=== PATIENT | male | born 1935 | race Caucasian/White ===

== ENCOUNTER 2017-10-04 10:07 | Inpatient (IN) | payer MEDICARE, OTHER ==
[~2017-10-04] VITALS: Ht 174 cm; Wt 74.8 kg
[~2017-10-04 10:07] MED LIST: AMLO2.5T PO; ASPI-496 PO; CA C1TAB35 PO; CALC0.25 PO; DOCU-180 PO; FERR-36 PO; FURO20TA3 PO; LOSA50TA6 PO; METO-95 PO; OMEP20TA62 PO; SPIR25TA3 PO; TRAM50TA2 PO; VALA500T4 PO; VITA1CAP PO
[2017-10-04] MEDS ORDERED: LACTATED RINGERS 1,000 ML IV SCH (10:37)
[2017-10-04 10:47] VITALS: BP 135/73
[2017-10-04] MEDS ORDERED: FENTANYL PF 250 MCG/5ML ONE (11:02)
[2017-10-04] MEDS ORDERED: BUPIVACAINE/PF 0.5% ONE (11:19)
[2017-10-04] MEDS ORDERED: EPINEPHRINE 1 MG/ML, 1ML ONE (11:19)
[2017-10-04] MEDS ORDERED: CEFOTETAN 2 GM ONE (11:51)
[2017-10-04] MEDS ORDERED: ROCURONIUM 10 MG/ML,10ML ONE (11:51)
[2017-10-04] MEDS ORDERED: PROPOFOL 10 MG/ML, 20ML ONE (12:13)
[2017-10-04] MEDS ORDERED: ONDANSETRON 2MG/ML, 2ML ONE (12:13)
[2017-10-04] MEDS ORDERED: DEXAMETHASONE 4 MG/ML, 1ML ONE (12:13)
[2017-10-04] MEDS ORDERED: SUCCINYLCHOLINE 20 MG/ML, 10ML ONE (12:13)
[2017-10-04] MEDS ORDERED: BUPIVACAINE/PF-EPI 0.5% 1:200K INFIL ONE (12:21)
[2017-10-04] MEDS ORDERED: GLYCOPYRROLATE 0.4 MG/2 ML, 2ML ONE (12:27)
[2017-10-04] MEDS ORDERED: NEOSTIGMINE 1 MG/ML, 10ML ONE (12:27)
[2017-10-04] MEDS ORDERED: morphine SULFATE 10 MG/ML, 1ML IV PRN (13:00)
[2017-10-04] MEDS ORDERED: HYDROcodone/APAP 7.5-325MG/15ML UDC PO PRN (13:00)
[2017-10-04] MEDS ORDERED: DIPHENHYDRAMINE 50 MG/ML, 1ML IV PRN (13:00)
[2017-10-04] MEDS ORDERED: LORazepam 2 MG/ML, 1ML IV PRN (13:00)
[2017-10-04] MEDS ORDERED: PROMETHAZINE 12.5 MG SUPP PR PRN (13:00)
[2017-10-04] MEDS ORDERED: hydrALAzine 20 MG/ML, 1ML IV PRN ×2 (13:00)
[2017-10-04] MEDS ORDERED: PROMETHAZINE 25 MG/ML, 1ML IM PRN (13:00)
[2017-10-04] MEDS ORDERED: PROMETHAZINE 25 MG/ML, 1ML IV PRN (13:00)
[2017-10-04] MEDS ORDERED: OXYcodone 5 MG/5 ML ORAL.SOL UDC PO PRN (13:00)
[2017-10-04] MEDS ORDERED: ONDANSETRON 2MG/ML, 2ML IVPush PRN ×2 (13:00)
[2017-10-04] MEDS ORDERED: ENALAPRILAT 1.25 MG/ML, 2ML IV PRN (13:00)
[2017-10-04] MEDS ORDERED: ACETAMINOPHEN 325 MG TABLET PO PRN (13:00)
[2017-10-04] MEDS ORDERED: OXYcodone 5 MG/5 ML ORAL.SOL UDC ONE (13:09)
[2017-10-04] MEDS ORDERED: ACETAMINOPHEN 650 MG/20.3 ML UDC ONE (13:09)
[2017-10-04] MEDS ORDERED: FENTANYL PF 100 MCG/2ML ONE (13:09)
[2017-10-04] MEDS: FENTANYL PF 100 MCG/2ML IV PRN ×4 (13:11→13:47)
[2017-10-04] MEDS ORDERED: LABETALOL 5MG/ML, 20ML ONE (13:25)
[2017-10-04] MEDS: LABETALOL 5MG/ML, 20ML IV PRN ×2 (13:28→13:47)
[2017-10-04] MEDS: morphine SULFATE 10 MG/ML, 1ML IV PRN ×2 (14:43→15:07)
[2017-10-04 15:16] VITALS: BP 133/76
[2017-10-04] MEDS ORDERED: PLEASE ENTER ALLERGIES MC SCH (15:30)
[2017-10-04 15:58] LABS: MEAN CORPUSCULAR HEMOGLOBIN 38.8 pg (27.5-34.5); MEAN CORPUSCULAR HGB CONC 33.4 g/dL (33.2-36.2); MEAN CORPUSCULAR VOLUME 116.1 fL (81-97); MEAN PLATELET VOLUME 6.2 fL (7.4-10.4); PLATELET COUNT 289 x10^3/uL (130-400); RED CELL DISTRIBUTION WIDTH 13.1 % (9.4-14.8)
[2017-10-04 16:09] LABS: ALANINE AMINOTRANSFERASE 41 U/L (12-78); ALBUMIN 3.6 g/dL (3.4-5.0); ANION GAP 8 mmol/L (5-15); CHLORIDE 104 mmol/L (98-107); CREATININE 2.11 mg/dL (0.7-1.3)
[2017-10-04 16:11] VITALS: BP 136/79
[2017-10-04 16:13] LABS: ALKALINE PHOSPHATASE 161 U/L (45-117); BILIRUBIN,TOTAL 0.5 mg/dL (0.2-1.0); TOTAL PROTEIN 7.5 g/dL (6.4-8.2); TROPONIN I < 0.015 ng/mL (0.000-0.045)
[2017-10-04] MEDS: FAMOTIDINE 20 MG/2 ML IV SCH (16:13)
[2017-10-04] MEDS: LACTATED RINGERS 1,000 ML IV SCH (16:17)
[2017-10-04 16:19] LABS: BASOPHILS % (AUTO) 0 % (0-1); EOSINOPHILS % (AUTO) 0 % (1-7); LYMPHOCYTES # (AUTO) 0.24 x10^3/uL (1-3.4); LYMPHOCYTES % (AUTO) 2 % (22-44); MD SCAN; MONOCYTES # (AUTO) 0.22 x10^3/uL (0.2-0.8); MONOCYTES % (AUTO) 2 % (2-9); NEUTROPHILS % (AUTO) 96 % (42-75)
[2017-10-04] MEDS: METOPROLOL TARTRATE 25 MG TABLET PO SCH ×2 (17:58→18:04)
[2017-10-04 19:28] VITALS: BP 106/60
[2017-10-04] MEDS: LOSARTAN 50MG TABLET PO SCH (20:53)
[2017-10-04 22:13] LABS: TROPONIN I < 0.015 ng/mL (0.000-0.045)
[2017-10-05 01:37] VITALS: BP 154/72
[2017-10-05] MEDS: LACTATED RINGERS 1,000 ML IV SCH (01:43)
[2017-10-05 06:23] VITALS: BP 175/87
[2017-10-05] MEDS: METOPROLOL TARTRATE 25 MG TABLET PO SCH ×2 (06:23→16:37)
[2017-10-05 06:26] LABS: TROPONIN I < 0.015 ng/mL (0.000-0.045)
[2017-10-05] MEDS ORDERED: SODIUM CHLORIDE 0.9% 1,000 ML IV SCH (07:30)
[2017-10-05] MEDS: ENOXAPARIN 30 MG/0.3 ML SQ SCH (08:16)
[2017-10-05] MEDS: AMLODIPINE 2.5 MG TABLET PO SCH (08:16)
[2017-10-05 08:17] VITALS: BP 163/88
[2017-10-05] MEDS: morphine SULFATE 10 MG/ML, 1ML IV PRN (08:24)
[2017-10-05] MEDS: LOSARTAN 50MG TABLET PO SCH ×2 (08:24→20:43)
[2017-10-05 08:32] LABS: MEAN CORPUSCULAR HEMOGLOBIN 38.8 pg (27.5-34.5); MEAN CORPUSCULAR HGB CONC 33.5 g/dL (33.2-36.2); MEAN CORPUSCULAR VOLUME 115.8 fL (81-97); MEAN PLATELET VOLUME 6.2 fL (7.4-10.4); PLATELET COUNT 264 x10^3/uL (130-400); RED BLOOD COUNT 2.97 x10^6/uL (4.38-5.82)
[2017-10-05 08:37] LABS: ALBUMIN 2.8 g/dL (3.4-5.0); ANION GAP 8 mmol/L (5-15); CALCIUM 8.8 mg/dL (8.5-10.1); CHLORIDE 107 mmol/L (98-107)
[2017-10-05 08:42] LABS: ALANINE AMINOTRANSFERASE 29 U/L (12-78); ALKALINE PHOSPHATASE 124 U/L (45-117); BILIRUBIN,TOTAL 0.6 mg/dL (0.2-1.0); CREATININE 1.65 mg/dL (0.7-1.3); TOTAL PROTEIN 6.2 g/dL (6.4-8.2)
[2017-10-05] MEDS ORDERED: METOPROLOL SUCCINATE 100 MG TAB.ER.24H PO SCH (09:00)
[2017-10-05 09:07] LABS: BASOPHILS # (AUTO) 0.05 x10^3/uL (0-0.1); BASOPHILS % (AUTO) 1 % (0-1); EOSINOPHILS % (AUTO) 1 % (1-7); LYMPHOCYTES % (AUTO) 4 % (22-44); MD SCAN; MONOCYTES # (AUTO) 0.69 x10^3/uL (0.2-0.8); MONOCYTES % (AUTO) 9 % (2-9); NEUTROPHILS # (AUTO) 6.87 x10^3/uL (1.8-6.8); NEUTROPHILS % (AUTO) 86 % (42-75)
[2017-10-05] MEDS: HYDROcodone/APAP 5/325 TABLET PO PRN ×2 (13:25→20:42)
[2017-10-05] MEDS: FAMOTIDINE 20 MG/2 ML IV SCH (13:28)
[2017-10-05 14:30] VITALS: BP 122/73
[2017-10-05 20:41] VITALS: BP 165/75
[2017-10-06 01:15] VITALS: BP 123/64
[2017-10-06 05:59] VITALS: BP 154/79
[2017-10-06] MEDS: HYDROcodone/APAP 5/325 TABLET PO PRN (06:03)
[2017-10-06] MEDS: METOPROLOL TARTRATE 25 MG TABLET PO SCH ×2 (06:03→18:16)
[2017-10-06 06:29] LABS: MEAN CORPUSCULAR HEMOGLOBIN 38.9 pg (27.5-34.5); MEAN CORPUSCULAR HGB CONC 33.4 g/dL (33.2-36.2); MEAN CORPUSCULAR VOLUME 116.3 fL (81-97); MEAN PLATELET VOLUME 6.4 fL (7.4-10.4); PLATELET COUNT 244 x10^3/uL (130-400); RED BLOOD COUNT 2.95 x10^6/uL (4.38-5.82); RED CELL DISTRIBUTION WIDTH 13.5 % (9.4-14.8)
[2017-10-06 06:31] LABS: ANION GAP 7 mmol/L (5-15); CALCIUM 8.7 mg/dL (8.5-10.1); CHLORIDE 107 mmol/L (98-107); CREATININE 1.55 mg/dL (0.7-1.3)
[2017-10-06 07:17] LABS: BASOPHILS # (AUTO) 0.03 x10^3/uL (0-0.1); BASOPHILS % (AUTO) 0 % (0-1); EOSINOPHILS # (AUTO) 0.22 x10^3/uL (0-0.4); EOSINOPHILS % (AUTO) 3 % (1-7); LYMPHOCYTES # (AUTO) 0.23 x10^3/uL (1-3.4); LYMPHOCYTES % (AUTO) 4 % (22-44); MD SCAN; MONOCYTES # (AUTO) 0.69 x10^3/uL (0.2-0.8); MONOCYTES % (AUTO) 11 % (2-9); NEUTROPHILS # (AUTO) 5.41 x10^3/uL (1.8-6.8); NEUTROPHILS % (AUTO) 82 % (42-75)
[2017-10-06 08:06] VITALS: BP 117/62
[2017-10-06] MEDS: AMLODIPINE 2.5 MG TABLET PO SCH (09:07)
[2017-10-06] MEDS: TAMSULOSIN 0.4 MG CAP.ER.24H PO SCH (09:07)
[2017-10-06] MEDS: ENOXAPARIN 30 MG/0.3 ML SQ SCH (09:07)
[2017-10-06] MEDS: LOSARTAN 50MG TABLET PO SCH ×2 (09:07→20:46)
[2017-10-06] MEDS: FAMOTIDINE 20 MG/2 ML IV SCH (09:07)
[2017-10-06] MEDS: CEFTRIAXONE PMX 1GM/50ML 50 ML IV SCH (10:43)
[2017-10-06] MEDS: DOXYCYCLINE 100MG TABLET PO SCH ×2 (10:43→20:46)
[2017-10-06 14:14] LABS: MICROSCOPIC AUTO
[2017-10-06 14:20] VITALS: BP 136/74
[2017-10-06 20:16] VITALS: BP 92/57
[2017-10-06 20:27] VITALS: BP 138/71
[2017-10-07 04:08] VITALS: BP 157/68
[2017-10-07] MEDS: METOPROLOL TARTRATE 25 MG TABLET PO SCH ×2 (05:07→17:51)
[2017-10-07 05:15] LABS: MEAN CORPUSCULAR HEMOGLOBIN 39.5 pg (27.5-34.5); MEAN CORPUSCULAR VOLUME 116.3 fL (81-97); MEAN PLATELET VOLUME 6.1 fL (7.4-10.4); PLATELET COUNT 243 x10^3/uL (130-400); RED BLOOD COUNT 2.79 x10^6/uL (4.38-5.82); RED CELL DISTRIBUTION WIDTH 12.8 % (9.4-14.8)
[2017-10-07 05:24] LABS: CHLORIDE 106 mmol/L (98-107)
[2017-10-07 05:39] LABS: ANION GAP 9 mmol/L (5-15); CALCIUM 8.7 mg/dL (8.5-10.1); CREATININE 1.39 mg/dL (0.7-1.3)
[2017-10-07 06:06] LABS: BASOPHILS # (AUTO) 0.03 x10^3/uL (0-0.1); BASOPHILS % (AUTO) 1 % (0-1); EOSINOPHILS # (AUTO) 0.22 x10^3/uL (0-0.4); EOSINOPHILS % (AUTO) 4 % (1-7); LYMPHOCYTES # (AUTO) 0.33 x10^3/uL (1-3.4); LYMPHOCYTES % (AUTO) 6 % (22-44); MD SCAN; MONOCYTES # (AUTO) 0.61 x10^3/uL (0.2-0.8); MONOCYTES % (AUTO) 10 % (2-9); NEUTROPHILS # (AUTO) 4.85 x10^3/uL (1.8-6.8); NEUTROPHILS % (AUTO) 80 % (42-75)
[2017-10-07 08:25] VITALS: BP 154/75
[2017-10-07] MEDS: LOSARTAN 50MG TABLET PO SCH ×2 (09:31→21:13)
[2017-10-07] MEDS: TAMSULOSIN 0.4 MG CAP.ER.24H PO SCH (09:31)
[2017-10-07] MEDS: DOXYCYCLINE 100MG TABLET PO SCH ×2 (09:31→21:13)
[2017-10-07] MEDS: AMLODIPINE 2.5 MG TABLET PO SCH (09:31)
[2017-10-07] MEDS: FAMOTIDINE 20 MG/2 ML IV SCH (09:32)
[2017-10-07] MEDS: CEFTRIAXONE PMX 1GM/50ML 50 ML IV SCH (09:32)
[2017-10-07] MEDS: ENOXAPARIN 30 MG/0.3 ML SQ SCH (09:32)
[2017-10-07 13:48] VITALS: BP 132/73
[2017-10-07 20:07] VITALS: BP 134/70
[2017-10-08 01:53] VITALS: BP 147/76
[2017-10-08] MEDS: METOPROLOL TARTRATE 25 MG TABLET PO SCH (06:26)
[2017-10-08 07:43] LABS: MEAN CORPUSCULAR HEMOGLOBIN 38.6 pg (27.5-34.5); MEAN CORPUSCULAR HGB CONC 33.2 g/dL (33.2-36.2); MEAN CORPUSCULAR VOLUME 116.2 fL (81-97); MEAN PLATELET VOLUME 6.2 fL (7.4-10.4); PLATELET COUNT 263 x10^3/uL (130-400); RED BLOOD COUNT 2.86 x10^6/uL (4.38-5.82)
[2017-10-08 07:47] VITALS: BP 158/74
[2017-10-08 07:54] LABS: ANION GAP 6 mmol/L (5-15); CALCIUM 8.4 mg/dL (8.5-10.1); CHLORIDE 107 mmol/L (98-107); CREATININE 1.53 mg/dL (0.7-1.3)
[2017-10-08 08:26] LABS: BASOPHILS # (AUTO) 0.04 x10^3/uL (0-0.1); BASOPHILS % (AUTO) 1 % (0-1); EOSINOPHILS # (AUTO) 0.18 x10^3/uL (0-0.4); EOSINOPHILS % (AUTO) 3 % (1-7); LYMPHOCYTES # (AUTO) 0.28 x10^3/uL (1-3.4); LYMPHOCYTES % (AUTO) 5 % (22-44); MD MORPH REVIEW ONLY; MONOCYTES # (AUTO) 0.52 x10^3/uL (0.2-0.8); MONOCYTES % (AUTO) 10 % (2-9); NEUTROPHILS # (AUTO) 4.49 x10^3/uL (1.8-6.8); NEUTROPHILS % (AUTO) 82 % (42-75)
[2017-10-08 08:27] LABS: ANISOCYTOSIS 1+
[2017-10-08 08:28] LABS: <PLATELET ESTIMATE> ADEQUATE; <PLT MORPHOLOGY> NORMAL PLT MORPH
[2017-10-08] MEDS ORDERED: GUAIFENESIN 200 MG TABLET PO SCH (09:00)
[2017-10-08] MEDS ORDERED: ENOXAPARIN 40 MG/0.4 ML SQ SCH (09:00)
[2017-10-08] MEDS ORDERED: VALACYCLOVIR 500MG TABLET PO SCH (09:00)
[2017-10-08] MEDS ORDERED: CALCITRIOL 0.25 MCG CAPSULE PO SCH (09:00)
[2017-10-08] MEDS ORDERED: SPIRONOLACTONE 25 MG TABLET PO SCH (09:00)
[2017-10-08] MEDS ORDERED: CALCIUM/VITAMIN D3 250-125 TABLET PO SCH (09:00)
[2017-10-08] MEDS: CEFTRIAXONE PMX 1GM/50ML 50 ML IV SCH (10:30)
[2017-10-08] MEDS: AMLODIPINE 2.5 MG TABLET PO SCH (10:33)
[2017-10-08] MEDS: TAMSULOSIN 0.4 MG CAP.ER.24H PO SCH (10:33)
[2017-10-08] MEDS: DOXYCYCLINE 100MG TABLET PO SCH (10:34)
[2017-10-08] MEDS: LOSARTAN 50MG TABLET PO SCH (10:37)
[2017-10-08 13:07] VITALS: BP 137/77
[2017-10-08] MEDS ORDERED: CEFD300C37 PO (13:58)
[2017-10-08] MEDS ORDERED: DOXY100T PO (13:59)
[2017-10-08] MEDS ORDERED: METO25TA35 PO (14:00)
[2017-10-08] MEDS ORDERED: HYDR473S51 JT (14:03)
[2017-10-08] MEDS ORDERED: MULTIVITS,STRESS FORMULA 1 TABLET PO SCH (18:00)
== END 2017-10-08 16:48 | disposition home or self-care (01) | DRG 823 ==
LOC: ORIP 10:07 → OBSVTOIN 10:07 → INTOOBSV 10:07 → EDSTATUS 12:00 → 4NOR 14:17 → 5SO 15:12
PROVIDERS: ADMIT Thoracic Surgery (Cardiothoracic Vascular Surgery); ATTEND Thoracic Surgery (Cardiothoracic Vascular Surgery)
PROC: 07BD4ZX Excision of Aortic Lymphatic, Percutaneous Endoscopic Approach, Diagnostic (ICD-10-PCS; 2017-10-04)
PROC: 07BB4ZX Excision of Mesenteric Lymphatic, Percutaneous Endoscopic Approach, Diagnostic (ICD-10-PCS; 2017-10-04)
PROC: 0DHA3UZ Insertion of Feeding Device into Jejunum, Percutaneous Approach (ICD-10-PCS; principal; 2017-10-04 11:30)
PROC: 5A09357 Assistance with Respiratory Ventilation, Less than 24 Consecutive Hours, Continuous Positive Airway Pressure (ICD-10-PCS; 2017-10-08)
DX: C77.2 Secondary and unspecified malignant neoplasm of intra-abdominal lymph nodes (principal); J18.9 Pneumonia, unspecified organism; N17.0 Acute kidney failure with tubular necrosis; E43 Unspecified severe protein-calorie malnutrition; K56.609 Unspecified intestinal obstruction, unspecified as to partial versus complete obstruction; C15.9 Malignant neoplasm of esophagus, unspecified; K55.9 Vascular disorder of intestine, unspecified; C78.6 Secondary malignant neoplasm of retroperitoneum and peritoneum; D68.69 Other thrombophilia; E87.5 Hyperkalemia; I48.91 Unspecified atrial fibrillation; D64.9 Anemia, unspecified; E87.6 Hypokalemia; I12.9 Hypertensive chronic kidney disease with stage 1 through stage 4 chronic kidney disease, or unspecified chronic kidney disease; K22.8 Other specified diseases of esophagus; Z96.653 Presence of artificial knee joint, bilateral; N18.9 Chronic kidney disease, unspecified; R13.10 Dysphagia, unspecified; Z79.899 Other long term (current) drug therapy; Z80.0 Family history of malignant neoplasm of digestive organs; Z85.048 Personal history of other malignant neoplasm of rectum, rectosigmoid junction, and anus; Z87.891 Personal history of nicotine dependence; Z92.21 Personal history of antineoplastic chemotherapy; Z92.3 Personal history of irradiation; Z95.0 Presence of cardiac pacemaker; Z85.828 Personal history of other malignant neoplasm of skin; Z68.24 Body mass index [BMI] 24.0-24.9, adult
CPT/HCPCS: 36415; 71010; 74000; 80048; 80053; 81001; 83605; 83735; 84100; 84484; 85025; 86850; 86900; 87040; 88305; 88341; 88342; 93005; B4087; J0171; J0696; J1100; J1650; J2405; J2704; J2710; J3010; J3490; G0461; J0330; J0360; J2270; J7030; J7120; S0028; S0074

== ENCOUNTER → 2017-11-21 | Outpatient (CLI) | payer MEDICARE, OTHER ==
[~2017-11-21] MED LIST changes: +CEFD300C37 PO; +DOXY100T PO; -FERR-36 PO; +FERR-51 PO; +HYDR473S51 JT; +METO25TA35 PO
== END | disposition home or self-care (01) ==
LOC: RAD 13:43
PROVIDERS: ATTEND Thoracic Surgery (Cardiothoracic Vascular Surgery)
DX: R10.9 Unspecified abdominal pain (principal); M43.26 Fusion of spine, lumbar region; J90 Pleural effusion, not elsewhere classified
CPT/HCPCS: 74250

== ENCOUNTER 2018-03-10 10:50 | Emergency (ER) | payer MEDICARE, OTHER ==
[~2018-03-10] VITALS: Ht 172.7 cm; Wt 71.3 kg
[2018-03-10 10:52] VITALS: BP 137/66
== END 2018-03-10 12:41 | disposition home or self-care (01) ==
LOC: ED 12:38
DX: K94.13 Enterostomy malfunction (principal); I11.0 Hypertensive heart disease with heart failure; I50.9 Heart failure, unspecified; Z85.01 Personal history of malignant neoplasm of esophagus; Z85.048 Personal history of other malignant neoplasm of rectum, rectosigmoid junction, and anus
CPT/HCPCS: 99284